=== PATIENT | male | born 1970 | race Caucasian/White ===

== ENCOUNTER 2017-03-17 16:33 | Inpatient (IN) | payer BC ==
[~2017-03-17] VITALS: Ht 175.3 cm; Wt 104.3 kg
[2017-03-17] MEDS ORDERED: CELEXA20 MG PO (17:47)
[2017-03-17] MEDS ORDERED: ALFUZOSIN HCL E10 MG PO (17:48)
[2017-03-17] MEDS ORDERED: BUSPAR 10MG10 MG PO (17:48)
[2017-03-17] MEDS ORDERED: ALLEGRA ALLERG180 MG PO (17:48)
[2017-03-17] MEDS ORDERED: MUCINEX D ER 11 EACH PO (17:49)
[2017-03-17] MEDS ORDERED: IBUPROFEN800 MG PO (17:49)
[2017-03-17] MEDS ORDERED: MULTIVITAMINS1 EAC1 PO (17:49)
[2017-03-18 04:26] LABS: HEMOGLOBIN 14.2 gm/dl (14.0-17.5); RED BLOOD COUNT 4.5 M/UL (4.20-5.50)
[2017-03-18 04:28] LABS: BUN/CREATININE RATIO 18 (0-10)
[2017-03-18] MEDS ORDERED: ZOSYN 3.373.375 GM/5 IV (18:15)
[2017-03-18] MEDS ORDERED: VANCOCIN 125MG/2.5ML IV (18:16)
[2017-03-18] MEDS ORDERED: DOXYCYCLINE HY100 MG PO (18:21)
[2017-03-18] MEDS ORDERED: CLARITIN10 M2 PO (18:22)
[2017-03-18] MEDS ORDERED: FIORICET TAB1 EA PO (18:24)
[2017-03-18] MEDS ORDERED: TYLENOL 325MG325 MG PO (18:26)
[2017-03-18] MEDS ORDERED: MUCINEX600 MG PO (18:27)
[2017-03-18] MEDS ORDERED: ONDANSETRON4 MG/2 ML INJ (18:28)
== END 2017-03-18 20:08 | disposition short-term general hospital (02) | DRG 872 ==
LOC: PROG CARE 17:10
PROVIDERS: ADMIT Internal Medicine
DX: A41.9 Sepsis, unspecified organism (principal); A93.8 Other specified arthropod-borne viral fevers; N40.0 Benign prostatic hyperplasia without lower urinary tract symptoms; F32.9 Major depressive disorder, single episode, unspecified; J30.2 Other seasonal allergic rhinitis; W57.XXXA Bitten or stung by nonvenomous insect and other nonvenomous arthropods, initial encounter; D69.6 Thrombocytopenia, unspecified; D70.9 Neutropenia, unspecified; R74.0 Nonspecific elevation of levels of transaminase and lactic acid dehydrogenase [LDH]; R50.81 Fever presenting with conditions classified elsewhere; Z86.14 Personal history of Methicillin resistant Staphylococcus aureus infection; T14.8 Other injury of unspecified body region; Z79.899 Other long term (current) drug therapy
CPT/HCPCS: 36415; 80053; 83605; 85025; 86403; 86618; 86666; 87040; J1650; J2405; J3370; J7050; J7070

== ENCOUNTER 2022-01-08 17:53 | Emergency (ER) | payer BC ==
[~2022-01-08 17:53] MED LIST: ALFUZOSIN HCL E10 MG PO; ALLEGRA ALLERG180 MG PO; BUSPAR 10MG10 MG PO; CELEXA20 MG PO; CLARITIN10 M2 PO; DOXYCYCLINE HY100 MG PO; FIORICET TAB1 EA PO; GLUCOPHAGE XR500 M1 PO; IBUPROFEN800 MG PO; MUCINEX D ER 11 EACH PO; MUCINEX600 MG PO; MULTIVITAMINS1 EAC1 PO; ONDANSETRON4 MG/2 ML INJ; TYLENOL 325MG325 MG PO; VANCOCIN 125MG/2.5ML IV; ZOSYN 3.373.375 GM/5 IV
== END 2022-01-08 20:00 | disposition home or self-care (01) ==
LOC: ER1 17:53
DX: S51.011A Laceration without foreign body of right elbow, initial encounter (principal); W01.0XXA Fall on same level from slipping, tripping and stumbling without subsequent striking against object, initial encounter; Y92.89 Other specified places as the place of occurrence of the external cause; Y99.0 Civilian activity done for income or pay
CPT/HCPCS: 12002; 73080; 99283